=== PATIENT | female | born 1955 | race African-American/Black ===

== ENCOUNTER 2017-04-30 21:30 | Inpatient (IN) | payer OTHER ==
[~2017-04-30] VITALS: Ht 160 cm; Wt 63.5 kg
--- NOTE | ~2017-04-30 | HC ---
[facility] [place] [address] CONSULTATION Name: LASHAWN GEORGE Room #: 428-P ADM IN M.R.#: [id number] Admission: 04/30/17 Attend Phys: Pedro Canales Discharge: Date of : 53 Report #: [id number] THIS REPORT FOR: //name// CC: Pedro Brantley DATE OF SERVICE: 05/01/2017 HISTORY OF PRESENT ILLNESS: This is a 62-year-old female patient who was evaluated by me for an acute onset of what looks like right third nerve palsy. There is no headache associated with it. It came spontaneously without any head trauma. She does have old neurological deficit, but there was no new neurological deficit in this patient. She feels some better, but objectively she still has a pretty dense right third nerve palsy. She does have some diplopia. Her diplopia is moderately severe, but as mentioned above, third nerve palsy is pretty severe. She is not a known diabetic. REVIEW OF SYSTEMS: Indicate that this patient had a stroke in the past. Some records are present in the computer from 2012, she had an MRI documented stroke that time. Those records also indicate that the patient may have had a prior stroke even before that. She still has residual on the right side, she walks with a cane. She indicates she has a strong family history of early age strokes. It looks like she had a workup last time, especially hypercoagulable workup the best I can tell, it was unremarkable. She does have a history of hypertension, after the stroke she has been disabled. She said she is on statin and aspirin, but she does not know what her last cholesterol was. She did have a carpal tunnel release at one time. She is not complaining of any ENT, cardiac, respiratory, GI, , musculoskeletal, constitutional, dermatological, hematological, psychiatric, throat, allergic, or endocrine symptoms, which are new. PAST MEDICAL HISTORY: Positive for strokes. FAMILY HISTORY: Positive for early age stroke. SOCIAL HISTORY: She smokes, but she says she drinks alcohol in moderation. She drinks about couple of drinks when she drinks alcohol, but she does not do it every day. PHYSICAL EXAMINATION: The patient's examinations indicate that this patient is alert, responsive, able to follow simple commands. She does not have any significant speech difficulty and her memory and fund of knowledge is her baseline. She is oriented. Cranial nerve examination 2-12 was carried out. She has a dense right third nerve palsy. That is an isolated finding, she may have some right-sided facial weakness, which is old, but is not very pronounced. [address] [address] CONSULTATION Name: LASHAWN GEORGE Room #: 428-P [facility] IN M.R.#: [id number] Admission: 04/30/17 Attend Phys: Pedro Canales Discharge: Date of : 53 Report #: [id number] She has a pretty significant weakness in the right upper extremity and mild weakness in the right lower extremity. Her position sense appeared to be intact, tone and reflexes appear to be increased on the right side. There does not appear to be much cerebellar sign. The best I can look at the fundus, there is no papilledema. She is a reasonably well-developed individual who does not have any dysmorphic features of eyes, ears, and face. Her visions and hearing looks adequate. Cardiac examination shows unremarkable heart sound and there is no murmur or arrhythmias. Respiratory examination does not show any respiratory difficulty or rhonchi on either side. Her pulses are palpable. She has no edema, cyanosis or jaundice. Her blood pressure is 129/68, respiration is 13, pulse is 71, and temperature is 98.1. She does have a high sed rate of 54. She had multiple testing done. She had a CT head and neck and that did not show any aneurysm. It looks like in 2013, she also had an MRA and that did not show any aneurysm either. IMPRESSION: 1. Pupils spearing right third nerve palsy. If diabetes is and aneurysms are excluded, most of the time this is idiopathic. 2. Multiple histories of strokes in the family and the patient had a stroke early in the life. 3. Continuous smoking. RECOMMENDATIONS: 1. We will suggest rheumatology consult to look for any collagen vascular disorder, which can cause mononeuropathy. 2. She needs an ophthalmology followup and evaluation sometime, but I do not think any rn community comes here on a regular basis. 3. She can put an eye patch and switch every few hours if the diplopia is a problem. 4. We will await the MRI. 5. She is on low dose statin and case can be made to change it to high dose statin, although her HDL is 79, which is pretty good. She did have a slightly high homocysteine at one time and I will recheck it. I discussed all of it with the patient and I did not see an echocardiogram from last admission and I will go ahead and schedule that. After the above was accomplished, she can be sent home, but should have a rheumatology, ophthalmology and a neurology followup. Thank you very much for this referral and if you have any question, please feel free to contact me. <ELECTRONICALLY SIGNED> By: Amos Brantley MD 05/01/172000 [id number] MD elda Ferguson
--- NOTE | ~2017-04-30 | 2DMMODE ---
[facility] [address] [place] [address] 2 D/M-MODE ECHOCARDIOGRAM Name: DORISLASHAWN Room #: 170-5 ADM IN M.R.#: [id number] Admission: 04/30/17 Attend Phys: Pedro Carvalho Discharge: Date of : 53 Date of Service: 05/01/17 1232 Report #: [id number] THIS REPORT FOR: //name// APPROVED REPORT Study performed: 05/01/2017 11:23:51 EXAM: Comprehensive 2D, Doppler, and color-flow Echocardiogram Patient Location: Echo lab Room #: ER-5 Status: routine BSA: 1.66 HR: 53 bpm BP: 138/73 mmHg Rhythm: NSR Other Information Study Quality: Good Indications CVA. Hx: HTN, CVA, tobacco abuse 2D Dimensions RVDd: 30.72 mm LVEF(%): 72.84 (>50%) IVSd: 10.63 (7-11mm) LVOT Diam: 19.97 (18-24mm) LVDd: 40.83 mm PWd: 10.79 (7-11mm) Ascending Ao: 38.33 (22-36mm) LVDs: 23.90 (25-40mm) Aortic Root: 30.74 mm Escobar's LVEF: 72.84 % Volumes Left Atrial Volume (Systole) Single Plane 4CH: 37.96 mL Single Plane 2CH: 41.03 mL LA ESV Index: 25.00 mL/m2 Aortic Valve AoV Peak Jonathon.: 1.48 m/s AO Peak Gr.: 8.77 mmHg LVOT Max P.34 mmHg LVOT Max V: 0.91 m/s KEANU Vmax: 1.93 cm2 Mitral Valve E/A Ratio: 0.8 MV Decel. Time: 237.65 ms [facility] [place] [address] 2 D/M-MODE ECHOCARDIOGRAM Name: LASHAWN GEORGE Room #: 170-5 [facility] IN .R.#: [id number] Admission: 04/30/17 Attend Phys: Pedro Carvalho Discharge: Date of : 53 Date of Service: 05/01/17 1232 Report #: [id number] MV E Max Jonathon.: 0.52 m/s MV A Jonathon.: 0.66 m/s MV PHT: 68.92 ms IVRT: 96.89 ms Pulmonary Valve PV Peak Jonathon.: 0.83 m/s PV Peak Gr.: 2.78 mmHg Pulmonary Vein P Vein S: 0.57 m/s P Vein A: 0.28 m/s P Vein D: 0.34 m/s P Vein A Dur.: 106.1 msec P Vein S/D Ratio: 1.68 Tricuspid Valve TR Peak Jonathon.: 2.74 m/s RAP Estimate: 5.00 mmHg TR Peak Gr.: 29.99 mmHg PA Pressure: 35.00 mmHg Left Ventricle The left ventricle is normal size. There is normal LV segmental wall motion. There is normal left ventricular wall thickness. Left ventricular systolic function is normal. LVEF is 55-60%. Mild diastolic dysfunction is present (impaired relaxation pattern). Right Ventricle The right ventricle is normal size. The right ventricular systolic function is normal. Atria The left atrium size is normal. No shunting noted by contrast bubble injection. The right atrium size is normal. Aortic Valve The aortic valve is normal in structure. No aortic regurgitation is present. There is no aortic valvular stenosis. Mitral Valve The mitral valve is normal in structure. Trace mitral regurgitation. Tricuspid Valve The tricuspid valve is normal in structure. Mild to moderate tricuspid regurgitation. Estimated PAP is 35mmHg[place] [address] 2 D/M-MODE ECHOCARDIOGRAM Name: LASHAWN GEORGE Room #: 170-5 [facility] IN [facility]#: [id number] Admission: 04/30/17 Attend Phys: Pedro Carvalho Discharge: Date of : 53 Date of Service: 05/01/17 1232 Report #: [id number] The pulmonary valve is normal in structure. Trace pulmonic regurgitation. Great Vessels The aortic root is normal in size. Ascending aorta measures at the upper limits of normal. IVC is normal in size and collapses >50% with inspiration. Pericardium There is no pericardial effusion. <Conclusion> The left ventricle is normal size. LVEF is 55-60%. The left atrium size is normal. The right atrium size is normal. The aortic valve is normal in structure. The mitral valve is normal in structure. Trace mitral regurgitation. The tricuspid valve is normal in structure. Mild to moderate tricuspid regurgitation. Estimated PAP is 35mmHg. The pulmonary valve is normal in structure. Trace pulmonic regurgitation. There is no pericardial effusion. No shunting noted by contrast bubble injection. <ELECTRONICALLY SIGNED> By: Damion Coley MD 05/01/17 1232 1232 1232 Damion Coley MD /INF
[~2017-04-30 21:30] MED LIST: ACID CONTROL20 MG PO; AMLODIPINE BESYL5 M1 PO; ASPIRIN325 PO; BENICAR20 MG PO; CELEXA 20 MG TA20 M1 PO; FOLIC ACID 1 MG1 MG PO; IBUPROFEN 600600 M1 PO; NORCO 5-325 TA1 EACH PO; SIMVASTATIN20 MG PO
[2017-04-30 21:46] VITALS: BP 156/103
[2017-04-30] MEDS ORDERED: CHANTIX0.5 MG (21:53)
[2017-04-30 22:23] LABS: HEMATOCRIT 38.2 % (37.0-47.0); HEMOGLOBIN 12.7 gm/dL (12.0-15.0); MCH 28.9 pg (26.0-34.0); MCHC 33.3 g/dL (28.0-37.0); MCV 86.8 fL (80.0-100.0); RBC 4.41 mil/uL (4.20-5.00); RDW 13.8 % (10.5-14.5); WBC 5.2 thou/uL (4.0-11.0)
[2017-04-30 22:27] LABS: POC CA IONIZED 4.9 mg/dL (4.5-5.3); POC CREATININE 0.8 mg/dL (0.6-1.3); POC HEMOGLOBIN 13.9 g/dL (12.0-15.0); POC POTASSIUM 3.5 mmol/L (3.5-5.1)
[2017-04-30 22:34] LABS: CALCIUM 9.7 mg/dL (8.5-10.1); CREATININE 0.8 mg/dL (0.6-1.0); POTASSIUM 3.5 mmol/L (3.5-5.1)
[2017-04-30 22:38] LABS: APTT 29.3 Seconds (24.5-32.8); PROTIME 10.2 Seconds (9.3-11.4)
[2017-04-30 22:39] LABS: ALBUMIN 3.9 g/dL (3.4-5.0); MAGNESIUM 2.3 mg/dL (1.8-2.4); TOTAL BILIRUBIN 0.3 mg/dL (<0.1-1.0); TOTAL PROTEIN 8.2 g/dL (6.4-8.2)
[2017-05-01 04:44] LABS: CALCIUM 8.8 mg/dL (8.5-10.1); CREATININE 0.7 mg/dL (0.6-1.0); POTASSIUM 3.8 mmol/L (3.5-5.1)
[2017-05-01 09:47] VITALS: BP 138/73
[2017-05-01 14:34] VITALS: BP 146/80
[2017-05-01 16:54] VITALS: BP 146/80
[2017-05-01 17:21] VITALS: BP 134/77
[2017-05-01 17:55] VITALS: BP 149/90
[2017-05-01 19:20] VITALS: BP 117/62
[2017-05-01 20:09] LABS: GLYCOHEMOGLOBIN (HGB A1C) 5.3 % (4.8-5.6)
[2017-05-02 03:26] VITALS: BP 147/82
[2017-05-02 05:40] LABS: CHOLESTEROL 202 mg/dL (<200); HDL CHOLESTEROL 111 mg/dL (>40); LDL CHOLESTEROL 79 mg/dL (<100); TC:HDL 1.8 Ratio (Not establshd); TRIGLYCERIDE 60 mg/dL (<150); VLDL 12 mg/dL (<40)
[2017-05-02 05:44] LABS: SERUM ASSESSMENT Clear
[2017-05-02 07:09] VITALS: BP 155/88
[2017-05-02] MEDS ORDERED: PREDNISONE 20 M20 MG PO (10:08)
[2017-05-02 10:27] VITALS: BP 155/88
== END 2017-05-02 13:52 | disposition home or self-care (01) | DRG 123 ==
LOC: ER 21:30 → EROBS 23:06 → ER 23:06 → 4E 05-01 17:27
PROVIDERS: Emergency Medicine; Nurse Practitioner Family; Psychiatry & Neurology Neuromuscular Medicine
PROC: 02HV33Z Insertion of Infusion Device into Superior Vena Cava, Percutaneous Approach (ICD-10-PCS; principal; 2017-04-30)
PROC: B548ZZA Ultrasonography of Superior Vena Cava, Guidance (ICD-10-PCS; principal; 2017-04-30)
DX: H49.01 Third [oculomotor] nerve palsy, right eye (principal); I69.351 Hemiplegia and hemiparesis following cerebral infarction affecting right dominant side; H53.2 Diplopia; G58.9 Mononeuropathy, unspecified; I10 Essential (primary) hypertension; F17.210 Nicotine dependence, cigarettes, uncomplicated; E78.5 Hyperlipidemia, unspecified
CPT/HCPCS: 10183

== ENCOUNTER 2019-10-19 15:31 | Emergency (ER) | payer MEDICARE, OTHER ==
[~2019-10-19] VITALS: Ht 157.5 cm; Wt 49.0 kg
[~2019-10-19 15:31] MED LIST changes: +CHANTIX0.5 MG; +PREDNISONE 20 M20 MG PO
[2019-10-19] MEDS ORDERED: LIPITOR40 MG PO (15:39)
[2019-10-19] MEDS ORDERED: APAP W/CODEINE1 TA2 PO (15:40)
[2019-10-19] MEDS ORDERED: TRAMADOL 50 MG50 MG PO ×2 (15:40→17:32)
[2019-10-19] MEDS ORDERED: MOBIC7.5 MG PO (17:32)
[2019-10-19 17:51] VITALS: BP 159/75
== END 2019-10-19 17:51 | disposition home or self-care (01) ==
LOC: ER 15:31
DX: S93.402A Sprain of unspecified ligament of left ankle, initial encounter (principal); S83.92XA Sprain of unspecified site of left knee, initial encounter; S16.1XXA Strain of muscle, fascia and tendon at neck level, initial encounter; S29.011A Strain of muscle and tendon of front wall of thorax, initial encounter; I10 Essential (primary) hypertension; E78.5 Hyperlipidemia, unspecified; F17.210 Nicotine dependence, cigarettes, uncomplicated; Z86.73 Personal history of transient ischemic attack (TIA), and cerebral infarction without residual deficits; Z79.899 Other long term (current) drug therapy; W10.8XXA Fall (on) (from) other stairs and steps, initial encounter; Y93.89 Activity, other specified; Y92.89 Other specified places as the place of occurrence of the external cause; Y99.8 Other external cause status

== ENCOUNTER → 2020-06-18 | Outpatient (CLI) | payer MEDICARE, OTHER ==
[~2020-06-18] MED LIST changes: +APAP W/CODEINE1 TA2 PO; +LIPITOR40 MG PO; +MOBIC7.5 MG PO; +TRAMADOL 50 MG50 MG PO
== END ==
LOC: SJCVC 14:24
PROVIDERS: ATTEND Internal Medicine
DX: R94.31 Abnormal electrocardiogram [ECG] [EKG] (principal); I49.9 Cardiac arrhythmia, unspecified; I10 Essential (primary) hypertension; E78.00 Pure hypercholesterolemia, unspecified; E78.5 Hyperlipidemia, unspecified; F17.200 Nicotine dependence, unspecified, uncomplicated; Z79.82 Long term (current) use of aspirin; Z79.899 Other long term (current) drug therapy; Z86.73 Personal history of transient ischemic attack (TIA), and cerebral infarction without residual deficits; Z82.49 Family history of ischemic heart disease and other diseases of the circulatory system

== ENCOUNTER → 2020-08-02 | Outpatient (CLI) | payer MEDICARE, OTHER | LOC: SJCVC 10:43 | PROVIDERS: ATTEND Internal Medicine | DX: I10 Essential (primary) hypertension (principal); E78.5 Hyperlipidemia, unspecified; I34.0 Nonrheumatic mitral (valve) insufficiency; I27.20 Pulmonary hypertension, unspecified; E78.00 Pure hypercholesterolemia, unspecified; E05.00 Thyrotoxicosis with diffuse goiter without thyrotoxic crisis or storm; F17.200 Nicotine dependence, unspecified, uncomplicated; Z79.82 Long term (current) use of aspirin; Z79.899 Other long term (current) drug therapy; Z86.73 Personal history of transient ischemic attack (TIA), and cerebral infarction without residual deficits; Z82.49 Family history of ischemic heart disease and other diseases of the circulatory system ==

== ENCOUNTER → 2021-04-26 | Outpatient (CLI) | payer MEDICARE, OTHER | LOC: SJCVC 10:28 | PROVIDERS: ATTEND Internal Medicine | DX: R94.31 Abnormal electrocardiogram [ECG] [EKG] (principal); R00.1 Bradycardia, unspecified; I10 Essential (primary) hypertension; E78.5 Hyperlipidemia, unspecified; F17.200 Nicotine dependence, unspecified, uncomplicated; Z86.73 Personal history of transient ischemic attack (TIA), and cerebral infarction without residual deficits; Z72.89 Other problems related to lifestyle; Z79.82 Long term (current) use of aspirin; Z79.899 Other long term (current) drug therapy ==